=== PATIENT | female | born 1955 | race Caucasian/White ===

== ENCOUNTER 2021-01-12 09:36 | Day surgery (SDC) | payer MEDICARE, OTHER ==
[~2021-01-12] VITALS: Ht 160 cm; Wt 64.0 kg
[~2021-01-12 09:36] MED LIST: ALBU90OI INH; ARIP20 PO; ATOR40TA PO; Aspir 8181 MG PO; BACL10 PO; Budeprion Xl300 MG PO; ESCI10 PO; FLUT1DIS2 INH; TOPROL XL25 MG PO; TUDORZA PRESS400 MC1
--- NOTE | 2021-01-12 15:34 | NUR ---
3mL AIR RELEASED FROM TR BAND. NO BLEEDING, OOZING OR HEMATOMA NOTED. VSS. PT DENIES ANY PAIN.
--- NOTE | 2021-01-12 15:37 | NUR ---
ALL AIR RELEASED FROM TR BAND. NO BLEDDING, OOZING OR HEMATOMA NOTED. WILL CONTINUE TO MONITOR. VSS. PT DENIES ANY PAIN OR CONCERNS.
--- NOTE | 2021-01-12 16:23 | NUR ---
DISCHARGE PT AMBULATED TO RESTROOM MULTIPLE TIMES AND DRESSED SELF WITH NO COMPLICATIONS. VSS. PT STATES HER UNDERSTANDING OF DC AND SITE CARE INSTRUCTIONS AND DENIES ANY QUESTIONS OR CONCERNS UPON DISCHARGE. TR BAND REMOVED, SITE CLEANED, NO BLEEDING, OOZING OR HEMATOMA NOTED. CLOTH DOT DRESSING APPLIED, WHITE BOARD PLACED BACK ON R ARM AND R ARM PLACED IN A SLING. IV DCD WITH CATH INTACT. PT TAKEN TO EXIT VIA WHEELCHAIR BY VOLUNTEER TO WHERE SIGNIFICANT OTHER WAS WAITING WITH VEHICLE.
== END 2021-01-12 16:15 | disposition home or self-care (01) ==
LOC: MHTC 09:36
DX: I25.3 Aneurysm of heart (principal); J44.9 Chronic obstructive pulmonary disease, unspecified; F17.200 Nicotine dependence, unspecified, uncomplicated; Z88.0 Allergy status to penicillin; Z88.8 Allergy status to other drugs, medicaments and biological substances
CPT/HCPCS: 93458; 99152; 99153; C1769; C1894; J1644; J2250; J3010; J7030; Q9967